=== PATIENT | female | born 1985 ===

== ENCOUNTER 2025-03-20 05:27 | Day surgery (SDC) | payer OTHER ==
[2025-03-14 13:25] VITALS: BP 119/79
[~2025-03-20] VITALS: Ht 162.6 cm; Wt 68.0 kg
[~2025-03-20 05:27] MED LIST: ZYRTEC10 M3 PO
[2025-03-20] MEDS ORDERED: ERTAPENEM SODIUM 1,000 MG VIAL IV SCH (06:00)
[2025-03-20] MEDS ORDERED: ENOXAPARIN SODIUM 40 MG/0.4 ML SYRINGE SUBCUTANEO ONE (07:10)
[2025-03-20] MEDS ORDERED: CEFTRIAXONE SODIUM 2,000 MG VIAL ONE (07:10)
[2025-03-20] MEDS ORDERED: METRONIDAZOLE/SODIUM CHLORIDE 500 MG/100 ML PIGGYBACK IV ONE (07:10)
[2025-03-20] MEDS ORDERED: ERTAPENEM SODIUM 1,000 MG VIAL ONE ×2 (07:12→07:14)
[2025-03-20] MEDS ORDERED: BUPIVACAINE HCL/MPF 0.5% 30ML VIAL ONE (10:18)
[2025-03-20] MEDS ORDERED: MORPHINE SULFATE 4 MG/ML VIAL IV ONE (11:55)
[2025-03-20] MEDS ORDERED: ONDANSETRON HCL 2 MG/ML VIAL ONE (12:03)
[2025-03-20] MEDS ORDERED: ONDANSETRON HCL 2 MG/ML VIAL IV ONE (12:05)
[2025-03-20] MEDS ORDERED: PERCOCET 5-3251 EACH PO (12:24)
== END 2025-03-20 15:20 | disposition home or self-care (01) ==
LOC: CIR.AMB 05:27
PROVIDERS: ATTEND Surgery
DX: K80.10 Calculus of gallbladder with chronic cholecystitis without obstruction (principal); Z88.0 Allergy status to penicillin; Z88.2 Allergy status to sulfonamides; Z88.8 Allergy status to other drugs, medicaments and biological substances